=== PATIENT | male | born 1990 | race Caucasian/White ===

== ENCOUNTER 2017-04-18 14:48 | Emergency (ER) | payer OTHER ==
[~2017-04-18] VITALS: Ht 193 cm; Wt 81.0 kg
[2017-04-18 17:29] VITALS: BP 128/90
== END 2017-04-18 17:19 | disposition home or self-care (01) ==
LOC: EME 14:48
PROC: 0HQLXZZ Repair Left Lower Leg Skin, External Approach (ICD-10-PCS; principal; 2017-04-18)
DX: S81.812A Laceration without foreign body, left lower leg, initial encounter (principal); W45.0XXA Nail entering through skin, initial encounter; Y99.0 Civilian activity done for income or pay
CPT/HCPCS: 99281; 99283